=== PATIENT | female | born 2005 | race Caucasian/White ===

== ENCOUNTER 2023-09-18 13:40 | Emergency (ER) | payer OTHER ==
[~2023-09-18] VITALS: Ht 167.6 cm; Wt 81.6 kg
[~2023-09-18 13:40] MED LIST: [UNRECOGNIZED DRUG - OTHER]
[2023-09-18 13:59] VITALS: BP 126/78; PULSE 96; RESP 20; TEMP 98; O2SAT 98
[2023-09-18 14:40] VITALS: BP 120/60; PULSE 88; RESP 18; TEMP 98; O2SAT 99
[2023-09-18] MEDS ORDERED: IBUP-2213 PO (14:40)
[2023-09-18] MEDS ORDERED: CYCL-711 PO (14:40)
[2023-09-18] MEDS ORDERED: ONDA-188 PO (14:40)
== END 2023-09-18 14:40 | disposition home or self-care (01) ==
LOC: MED 13:40
DX: S06.0X0A Concussion without loss of consciousness, initial encounter (principal); Z79.899 Other long term (current) drug therapy; Z79.1 Long term (current) use of non-steroidal anti-inflammatories (NSAID); V49.49XA Driver injured in collision with other motor vehicles in traffic accident, initial encounter; Y93.89 Activity, other specified; Y92.410 Unspecified street and highway as the place of occurrence of the external cause; Y99.8 Other external cause status
CPT/HCPCS: 99283